=== PATIENT | male | born 1970 | race Caucasian/White ===

== ENCOUNTER 2021-09-27 02:01 | Inpatient (IN) | payer OTHER ==
[2021-09-27] VITALS (8 sets, daily range): BP systolic 118–141; BP diastolic 73–79
[~2021-09-27] VITALS: Ht 180.3 cm; Wt 120.2 kg
--- NOTE | 2021-09-27 02:07 | NUR ---
[id number] FROM HOME C/O LEFT SHOULDER PAIN AND EPIGASTRIC PAIN X 3 DAYS. PATIENT ALERT AND ORIENTED X3. AMBULATORY WITH NON LABORED BREATHING IN BED 03 ON MONITOR AND POX, AWAITING MD HILL.
[2021-09-27] MEDS ORDERED: FAMOTIDINE/PF INJ 20 MG/2 ML VIAL IV ONE ×2 (02:30→02:38)
[2021-09-27] MEDS ORDERED: MAG HYDROX/AL HYDROX/SIMETH 30 ML UDC PO ONE (02:30)
[2021-09-27] MEDS ORDERED: ONDANSETRON HCL/PF 4 MG/2 ML VIAL IV ONE (02:30)
[2021-09-27] MEDS ORDERED: MAG HYDROX/AL HYDROX/SIMETH 30 ML UDC ONE (02:37)
[2021-09-27] MEDS ORDERED: ONDANSETRON HCL/PF 4 MG/2 ML VIAL ONE (02:38)
--- NOTE | 2021-09-27 02:41 | NUR ---
BLOOD WORK COLLECTED AND SENTT O LAB
[2021-09-27 02:45] LABS: BASOPHILS % (AUTO) 0.5 % (0.0-2.0); EOSINOPHILS % (AUTO) 1.7 % (0.0-6.0); HEMATOCRIT 44 % (39-51); LYMPHOCYTES # (AUTO) 2.8 K/uL (0.8-4.8); LYMPHOCYTES % (AUTO) 36.8 % (20.0-44.0); MEAN CORPUSCULAR HGB CONC 34 g/dl (31.0-36.0); MEAN CORPUSCULAR VOLUME 92 fL (80-96); MONOCYTES # (AUTO) 0.7 K/uL (0.1-1.30); MONOCYTES % (AUTO) 8.9 % (2.0-12.0); NEUTROPHILS # (AUTO) 3.9 K/uL (1.8-8.9); NEUTROPHILS % (AUTO) 52.1 % (43.0-81.0); PLATELET COUNT (AUTO) 199 K/uL (150-450); RED BLOOD CELL COUNT(AUTO) 4.82 MIL/uL (4.5-6.0); WHITE BLOOD COUNT (AUTO) 7.5 K/uL (4.3-11.0)
[2021-09-27 02:53] LABS: CALCIUM, SERUM 8.4 mg/dL (8.5-10.1); CARBON DIOXIDE 26 mmol/L (21-32); CHLORIDE 104 mmol/L (98-107); CREATININE 1.4 mg/dL (0.6-1.3); GLUCOSE 269 mg/dL (74-106); POTASSIUM 4.2 mmol/L (3.5-5.1); SODIUM SERUM 139 mmol/L (136-145); UREA NITROGEN, BLOOD 19 mg/dL (7-18)
--- NOTE | 2021-09-27 03:02 | NUR ---
TROP [id number]
--- NOTE | 2021-09-27 03:05 | NUR ---
COVID SWAB DONE AND SENT TO LAB
[2021-09-27] MEDS ORDERED: ENOXAPARIN SODIUM 80 MG/0.8 ML DISP.SYRIN SQ STA (03:10)
[2021-09-27] MEDS ORDERED: ASPIRIN 325 MG TABLET ONE (03:12)
[2021-09-27] MEDS ORDERED: METOPROLOL TARTRATE 50 MG TABLET ONE (03:18)
[2021-09-27] MEDS ORDERED: METOPROLOL TARTRATE INJ 5 MG/5 ML AMPUL ONE ×3 (03:18→03:44)
[2021-09-27] MEDS ORDERED: ENOXAPARIN SODIUM 100 MG/ML DISP.SYRIN SQ ONE (03:18)
[2021-09-27] MEDS: METOPROLOL TARTRATE INJ 5 MG/5 ML AMPUL IVP SCH ×3 (03:21→03:49)
[2021-09-27] MEDS: METOPROLOL TARTRATE 25 MG TABLET PO SCH ×2 (03:22→08:43)
--- NOTE | 2021-09-27 03:29 | NUR ---
[facility] CCT CALLED FOR CODE STEMI.
[2021-09-27] MEDS ORDERED: ASPIRIN 325 MG TABLET PO ONE (03:30)
[2021-09-27] MEDS ORDERED: MORPHINE SULFATE INJ 4 MG/ML DISP.SYRIN ONE (03:44)
--- NOTE | 2021-09-27 03:53 | NUR ---
CALL BACK FROM [facility]. PER DR JEAN, NOT STEMI.
[2021-09-27] MEDS ORDERED: MORPHINE SULFATE INJ 2 MG/ML DISP.SYRIN IV ONE (04:00)
[2021-09-27] MEDS ORDERED: ESMOLOL IV ONE (04:21)
[2021-09-27] MEDS ORDERED: NTG 50 MG/D5W250 ML BOTTL 250 ML IV ONE (04:23)
[2021-09-27] MEDS ORDERED: HYDROMORPHONE 1 MG/1 ML DISP.SYRIN IV ONE (04:30)
[2021-09-27] MEDS ORDERED: CT SWABBABLE VALVE TRANS SET 1 EA INFUS.SET MC ONE (04:46)
[2021-09-27] MEDS ORDERED: IOHEXOL-350 100 ML VIAL IV ONE (04:46)
[2021-09-27] MEDS ORDERED: IV NS 0.9% 250 ML IV ONE (04:46)
[2021-09-27] MEDS: NTG 50 MG/D5W250 ML BOTTL 250 ML IV PRN ×5 (04:48→06:00)
--- NOTE | 2021-09-27 04:59 | NUR ---
pt taken to ct
[2021-09-27] MEDS ORDERED: HYDROMORPHONE 1 MG/1 ML DISP.SYRIN ONE (05:06)
--- NOTE | 2021-09-27 05:09 | NUR ---
aleena colon and rectal surgeon at bedside
[2021-09-27] MEDS ORDERED: NTG 50 MG/D5W250 ML BOTTL 250 ML IV PRN (05:30)
[2021-09-27] MEDS ORDERED: MORPHINE SULFATE INJ 2 MG/ML DISP.SYRIN IV PRN (06:30)
[2021-09-27 07:43] LABS: CHOLESTEROL 249 mg/dL (<200); HDL CHOLESTEROL 36 mg/dL (40-60); LDL 136 mg/dL (0-99); TRIGLYCERIDES 516 mg/dL (30-150)
--- NOTE | 2021-09-27 07:45 | NUR ---
GOT ICU BED 257
--- NOTE | 2021-09-27 07:56 | NUR ---
REPORT GIVEN TO LIZBETH FOR SERVANDO
--- NOTE | 2021-09-27 08:14 | NUR ---
PT TRANSFERRED TO ICU WITH ACLS PROTOCOLS IN PLACE
--- NOTE | 2021-09-27 08:20 | NUR ---
SWIMMING [employer]OL INSTALLER AND SERVICER NOTES Patient A/O x4 admitted for severe chest pain and hypertensive emergency however was not a STEMI call. Patient was found to be transferred to a hospital with higher level of care however denied. Patient is a non-STEMI and cardiology recommended cardiac cath however due to no rooms patient would not get a cardiac cath until Tuesday or Tuesday. night monitor shows SR 71, patient room air , refused pain, no sob. infusing nitro 100mcg/min. skin assessment done intact. patient ambulatory. iv access on left and right AC area intact. next to the bed. call light within to reach. will follow up.
[2021-09-27] MEDS ORDERED: ISOSORBIDE DINITRATE (20MG) 20 MG TABLET PO SCH (09:00)
[2021-09-27] MEDS ORDERED: VALSARTAN 80 MG TABLET PO SCH (09:00)
[2021-09-27] MEDS ORDERED: ATORVASTATIN 40 MG TABLET PO SCH (09:00)
[2021-09-27] MEDS ORDERED: METOPROLOL TARTRATE 25 MG TABLET PO SCH (09:00)
[2021-09-27] MEDS ORDERED: ASPIRIN 81 MG TAB.CHEW PO SCH (09:00)
--- NOTE | 2021-09-27 10:12 | NUR ---
RN NOTES PATIENT LEFT AMA AT THIS TIME, MD'S EXPLAINED TO THE PATIENT ABOUT RISKS AND CONSEQUENCES Dr CABRERA, AND [employer] SPECIALIST DR GAMBLE. PATIENT DECIDED TO GO AMA. NEXT TO THE PATIENT. PATIENT REMOVED HIS IV ACCESS, AND MONITOR. ESCORTED PATIENT TO THE LOBBY FOR SAFETY.
[2021-09-27] MEDS ORDERED: ENOXAPARIN SODIUM 120 MG/0.8 ML DISP.SYRIN SQ SCH (21:00)
== END 2021-09-27 10:10 | disposition left against medical advice (07) | DRG 280 ==
LOC: ER 02:01 → TRANSITION 05:53 → ICU 07:45
PROVIDERS: ADMIT Nurse Practitioner Acute Care; ATTEND Internal Medicine
DX: I16.1 Hypertensive emergency (principal); N17.0 Acute kidney failure with tubular necrosis; I21.A1 Myocardial infarction type 2; E11.9 Type 2 diabetes mellitus without complications; E66.9 Obesity, unspecified; G47.33 Obstructive sleep apnea (adult) (pediatric); Z87.891 Personal history of nicotine dependence; Z68.37 Body mass index [BMI] 37.0-37.9, adult; F10.20 Alcohol dependence, uncomplicated; Z20.822 Contact with and (suspected) exposure to COVID-19
CPT/HCPCS: 36415; 71045-TC; 80048-TC; 80061-TC; 84484-TC; 85025-TC; 85730-TC; C9803; G0378; J1170; J1650; J2270; J2405; J3490; J7050; Q9967